=== PATIENT | male | born 1945 | race Caucasian/White ===

== ENCOUNTER 2017-09-20 08:15 | Inpatient (IN) | payer OTHER ==
[~2017-09-20] VITALS: Ht 177.8 cm; Wt 85.3 kg
[2017-10-18] MEDS ORDERED: CRESTOR5 MG (11:28)
[2017-10-18] MEDS ORDERED: SOTALOL80 MG (11:28)
[2017-10-25] MEDS ORDERED: SOTALOL80 MG PO (10:03)
[2017-10-25] MEDS ORDERED: CRESTOR10 MG PO (10:04)
[2017-10-27] MEDS ORDERED: PERCOCET 5-3251 EACH PO (08:30)
[2017-10-27] MEDS ORDERED: XARELTO10 MG PO (08:30)
[2017-10-27] MEDS ORDERED: DUI500 PO (08:30)
== END 2017-10-27 14:37 | DRG 470 ==
LOC: O/R 10-24 06:05 → SURG 10-24 06:05 → SURH 10-24 08:15 → SURG 10-24 15:43
PROVIDERS: Orthopaedic Surgery
PROC: 0QNF0ZZ Release Left Patella, Open Approach (ICD-10-PCS; 2017-10-24)
PROC: 4A12X4Z Monitoring of Cardiac Electrical Activity, External Approach (ICD-10-PCS; 2017-10-24)
PROC: 0SRD0J9 Replacement of Left Knee Joint with Synthetic Substitute, Cemented, Open Approach (ICD-10-PCS; principal; 2017-10-24 09:30)
DX: M17.12 Unilateral primary osteoarthritis, left knee (principal); D62 Acute posthemorrhagic anemia; G47.33 Obstructive sleep apnea (adult) (pediatric); E78.00 Pure hypercholesterolemia, unspecified; R00.1 Bradycardia, unspecified

== ENCOUNTER 2024-05-23 09:20 | Outpatient (CLI) | payer OTHER ==
[~2024-05-23 09:20] MED LIST: CRESTOR10 MG PO; CRESTOR5 MG; DUI500 PO; PERCOCET 5-3251 EACH PO; SOTALOL80 MG; SOTALOL80 MG PO; XARELTO10 MG PO
== END 2024-05-23 09:25 | disposition home or self-care (01) ==
LOC: TOM 09:20
PROVIDERS: ATTEND Internal Medicine Gastroenterology
DX: C18.7 Malignant neoplasm of sigmoid colon (principal); C18.3 Malignant neoplasm of hepatic flexure

== ENCOUNTER 2025-07-17 09:00 | Day surgery (SDC) | payer OTHER ==
[2025-07-14 08:56] LABS: BASO % 1.4 % (0.1-1.2); EOS # 0.66 (0.04-0.54); EOS % 11.2 % (0.7-7.0); LYMPH # 1.44 (1.18-3.74); LYMPH % 24.4 % (19.3-53.1); MEAN PLATELET VOLUME 9.60 fl (9.4-12.4); MONO # 0.71 (0.24-0.82); MONO % 12.0 % (4.7-12.5); NEUT # 2.99 (1.56-6.13); NEUT % 50.7 % (34.0-71.1); RED CELL DISTRIBUTION WIDTH 13.1 % (11.6-14.4); URINE APPEARANCE Clear; URINE BILIRRUBIN Negative (NEGATIVE); URINE BLOOD Small; URINE COLOR Yellow; URINE GLUCOSE Negative (NEGATIVE); URINE KETONE Negative (NEGATIVE); URINE LEUKOCYTE Negative; URINE NITRATE Negative; URINE PROTEIN Negative (NEGATIVE); URINE UROBILINOGEN 0.2 E.U./dl
[2025-07-14 09:01] LABS: URINE RBC 40.7 uL (0.0-20.8)
[2025-07-14 09:08] LABS: INR 1.32
[2025-07-14 09:12] LABS: URINE BACTERIA 2.2 uL (0.0-1933); URINE CAST 0.00 uL (0.0-1.40); URINE EPITHELIAL CELLS 0.3 uL (0.0-38.8); URINE WBC 0.9 uL (0.0-23.2)
[2025-07-14 09:35] LABS: ALT/SGPT 26.0 U/L (12-78); AST/SGOT 21.0 U/L (15-37); BILIRUBIN TOTAL 1.15 mg/dL (0.3-1.2); BUN CREA RATIO 20.0 (7.0-25.0); CREATININE SERUM 0.99 mg/dL (0.70-1.30); GFR 73.11; GLOBULINA 3.4 G/DL (2.4-3.5); GLUCOSE FASTING 101.0 mg/dL (65-100); OSMOLALITY SERUM 288.0 MOSM/KG (275-295)
[~2025-07-17 09:00] MED LIST changes: +COZAAR50 MG PO
[2025-07-17] MEDS ORDERED: CEFAZOLIN SODIUM 1,000 MG VIAL ONE (09:22)
[2025-07-17] MEDS ORDERED: LIDOCAINE HCL 1%/EPINEPHRINE 20ML VIAL IJ ONE (11:24)
[2025-07-17] MEDS ORDERED: SUGAMMADEX SODIUM 200 MG/2 ML VIAL IV ONE (12:39)
== END 2025-07-17 16:25 | disposition home or self-care (01) ==
LOC: CIR.AMB 09:00
PROVIDERS: ATTEND Orthopaedic Surgery
DX: M75.121 Complete rotator cuff tear or rupture of right shoulder, not specified as traumatic (principal); M75.21 Bicipital tendinitis, right shoulder; M24.111 Other articular cartilage disorders, right shoulder